=== PATIENT | female | born 1985 | race Asian ===

== ENCOUNTER 2024-05-27 18:49 | Emergency (ER) | payer OTHER, SELFPAY ==
[2024-05-27 18:52] VITALS: BP 112/60
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
[2024-05-27 20:38] VITALS: BP 105/81
[2024-05-27] MEDS: ISENTRESS 400 MG PO (23:16)
[2024-05-27] MEDS: FLAGYL 500 MG PO (23:16)
[2024-05-27] MEDS: TRUVADA TABLET 1 TABLET PO (23:16)
[2024-05-27] MEDS: VIBRAMYCIN 100 MG PO (23:16)
[2024-05-27 23:37] LABS: % Basophils 0.9 % (0-2); % Immature Granulocytes 0.3 % (0-0.5); % Lymphocytes 27.9 % (20.5-51.1); % Monocytes 6.4 % (1.7-9.3); % Neutrophils 61.5 % (42.2-75.2); Absolute Basophils 0.1 10^3/uL (0-0.2); Absolute Eosinophils 0.2 10^3/uL (0-0.7); Absolute Monocytes 0.5 10^3/uL (0.1-0.6); Absolute Neutrophils 4.3 10^3/uL (1.4-6.5); Hematocrit 41.2 % (37.0-47.0); Hemoglobin 13.9 g/dL (12.0-16.0); Mean Corp Hgb Conc. 33.7 g/dL (33.0-37.0); Mean Corpuscular Hgb 31.4 pg (27.0-31.0); Mean Corpuscular Volume 93.2 fL (81.0-99.0); Nucleated Red Blood Cells % 0 %; Platelet Count 212 10^3/uL (130-400); Red Blood Cell Count 4.42 10^6/uL (4.20-5.40); Red Cell Dist. Width 13.1 % (11.5-14.5); White Blood Cell Count 7.1 10^3/uL (4.8-10.8)
[2024-05-27 23:38] LABS: HCG, Serum Qualitative Screen Negative
[2024-05-27 23:39] LABS: ALT (SGPT) 14 U/L (0-35); AST (SGOT) 21 U/L (14-36); Albumin 4.5 g/dl (3.5-5.0); Alkaline Phosphatase 53 U/L (38-126); Blood Urea Nitrogen 11 mg/dl (7-17); Calcium 8.7 mg/dl (8.4-10.2); Carbon Dioxide 23 mmol/L (22-30); Chloride 105 mmol/L (98-107); Glucose 93 mg/dl (70-99); Potassium 4.1 mmol/L (3.5-5.1); Sodium 136 mmol/L (135-145); Total Bilirubin 0.3 mg/dl (0.2-1.3); Total Protein 7.2 g/dl (6.3-8.2); eGFR > 60.00
[2024-05-28] MEDS: ROCEPHIN 1.4286 MG IM (00:10)
[2024-05-28 00:12] LABS: Hepatitis B Surface Antigen Negative (Negative)
[2024-05-28 00:15] LABS: Hepatitis B Core Ab, IgM Negative (Negative)
[2024-05-28 00:16] VITALS: BMI 20.1
[2024-05-28 00:17] VITALS: BP 107/64
[2024-05-28 00:19] LABS: HIV Combo Negative (Negative)
[2024-05-28 00:29] LABS: Hepatitis B Surface Antibody Positive; Hepatitis C Antibody Negative (Negative)
[2024-05-28 00:45] VITALS: BP 107/64
== END 2024-05-28 00:45 | disposition home or self-care (01) ==
LOC: EMR 18:49
PROVIDERS: EMERGENCY PHYSICIAN Emergency Medicine
DX: Z04.41 Encounter for examination and observation following alleged adult rape (principal)
CPT/HCPCS: 96372; 99284; 80053; 84703; 85025; 86705; 86706; 86803; 87340; 87389